=== PATIENT | female | born 1995 | race Caucasian/White ===

== ENCOUNTER 2016-11-29 19:31 | Emergency (ER) | payer OTHER ==
[2016-11-29 19:47] VITALS: BP 137/75; PULSE 64; TEMP 98; BMI 28.0
[2016-11-29 21:01] LABS: BASOPHIL 0.7 % (0-2.0); EOSINOPHIL 2.2 % (0-4.5); MCH 29.8 pg (25.7-33.7); MCHC 33.7 g/dl (32.0-36.0); MEAN CELL VOLUME 88.4 fl (80-96); MEAN PLT VOLUME 9.4 fl (7.5-11.1); NEUTROPHILS 53.3 % (42.8-82.8); PLATELET COUNT 236 K/MM3 (134-434); RDW 13.8 % (11.6-15.6); WHITE BLOOD COUNT 9.3 K/mm3 (4.0-10.0)
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
[2016-11-29 21:32] LABS: ALBUMIN 3.8 g/dl (3.4-5.0); ANION GAP 10 (8-16); BILIRUBIN,TOTAL 0.4 mg/dL (0.2-1.0); CALCIUM 9.2 mg/dL (8.5-10.1); CO2 26 mmol/L (21-32); COCKROFT - GAULT 143.8285; CREATININE 0.7 mg/dL (0.55-1.02); GLUCOSE,RANDOM 101 mg/dL (74-106); SGOT/AST 22 U/L (15-37); SGPT/ALT 25 U/L (12-78); TOT PROT 7.5 g/dl (6.4-8.2)
[2016-11-29 21:33] LABS: ALK PHOS 103 U/L (45-117)
[2016-11-29 21:51] LABS: HIV 1 & 2 AB NEGATIVE; HIV 1 AGp24 NEGATIVE
[2016-11-29] MEDS ORDERED: HIV POST EXPOSURE PROPHYLAXIS KIT NR ONE (22:06)
[2016-11-29] MEDS ORDERED: HIV POST EXPOSURE PROPHYLAXIS KIT PO ONE (22:15)
== END 2016-11-29 22:32 | disposition home or self-care (01) ==
LOC: JERFT 19:31
DX: T76.21XA Adult sexual abuse, suspected, initial encounter (principal)
CPT/HCPCS: 36415; 80053; 84703; 85025; 87389; 87491; 87591; 99282-25

== ENCOUNTER 2017-09-10 00:41 | Emergency (ER) | payer OTHER ==
[2017-09-10 01:06] VITALS: BP 118/76; PULSE 76; TEMP 98.2; BMI 27.1
--- NOTE | 2017-09-10 01:36 | PDOC ---
History of Present Illness - General Chief Complaint: Abscess Boil Stated Complaint: CYST Time Seen by Provider: 09/10/17 00:44 History Source: Patient Exam Limitations: No Limitations - History of Present Illness Initial Comments: 09/10/17 02:00 This is a 22-year-old female who comes in complaining of a abscess in her right axilla. Patient has a history of similar Jarvis in the past that required I incision and drainage. Patient said that this evening in the abscess became very painful and started to drain spontaneously so she comes in for evaluation. Patient denies any fevers or chills. Patient said she is otherwise healthy PAST MEDICAL HISTORY: As per history of present illness PAST SURGICAL HISTORY: no significant history FAMILY HISTORY: no pertinant history SOCIAL HISTORY: Pt lives with family and is employed. MEDICATIONS: reviewed ALLERGIES: As per nursing notes Review of Systems General: No fevers or chills, no weakness, no weight loss HEENT: No change in vision. No sore throat,. No ear pain CardioVascular: No chest pain or shortness of breath Respiratory:No cough, or wheezing. Gastrointestinal: no nausea, vomitting, diarrhea or constipation, No rectal bleeding Genitourinary: No dysuria, hematuria, or frequency Musculoskeletal: No joint or muscle pain or swelling,+ Neurologic: No headache, vertigo, dizziness or loss of consciousness Psychiatric: nor depression Skin: Sebaceous cyst abscesses of right axilla Endocrine: no increased thirst or abnormal weight change Allergic: no skin or latex allergy All other systems reviewed and normal GENERAL: The patient is awake, alert, and fully oriented, in no acute distress. HEAD: Normal with no signs of trauma. EYES: Pupils equal, round and reactive to light, extraocular movements intact, sclera anicteric, conjunctiva clear. EXTREMITIES: Right axilla there is a approximately 3 x 3 cm abscess with some purulent drainage. There is associated lymphadenopathy. NEUROLOGICAL: Normal speech, normal gait. grossly intact PSYCH: Normal mood, normal affect. SKIN: Warm, Dry, normal turgor, no rashes or lesions noted. Procedure note: Incision and drainage of an abscess Area anesthetized with 1% lidocaine no epinephrine Abscess incised with a #11 blade Moderate amount of. The material was removed, and loculation was broken up. Abscess cavity packed with iodoform. Patient tolerated the procedure well Assessment and plan: This was a 22-year-old female who comes in with a sebaceous cyst abscess that required incision and drainage and packing. I performed the incision and drainage and packing and patient was discharged home she was told to remove the packing in 24 hours and start hot soaks patient does have somewhat she can follow-up with. Past History - Past Medical History Allergies/Adverse Reactions: Allergies Allergy/AdvReac Type Severity Reaction Status Date / Time No Known Allergies Allergy Verified 11/29/16 19:39 Home Medications: Ambulatory Orders NK [No Known Home Medication] 11/29/16 COPD: No - Immunization History Immunization Up to Date: Yes - Suicide/Smoking/Psychosocial Hx Smoking History: Never smoked Have you smoked in the past 12 months: No Number of Cigarettes Smoked Daily: 0 Hx Alcohol Use: No Drug/Substance Use Hx: No Substance Use Type: None *Physical Exam - Vital Signs Last Vital Signs Temp Pulse Resp BP Pulse Ox 98.2 F 76 16 118/76 100 09/10/17 00:46 09/10/17 00:46 09/10/17 00:46 09/10/17 00:46 09/10/17 00:46 *DC/Admit/Observation/Transfer Diagnosis at time of Disposition: Abscess of axilla - Discharge Dispostion Disposition: HOME Condition at time of disposition: Stable Admit: No - Referrals Referrals: ON STAFF,NOT [Primary Care Provider] - - Patient Instructions Printed Discharge Instructions: DI for Incision and Drainage of a Skin Abscess Additional Instructions: Remove the packing tomorrow evening and start hot soaks as discussed by the doctor. Tylenol or Motrin as needed for pain. Return to the emergency department immediately with ANY new, persistent or worsening symptoms. Continue any medications as previously prescribed by your physician. You should follow up with your primary doctor as soon as possible regarding today's emergency department visit. . Please make sure your doctor reviews the results of your emergency evaluation. Thank you for coming to the Emergency Department today for your care. It was a pleasure to see you today. Please note that your evaluation is INCOMPLETE until you follow-up with your doctor. - Post Discharge Activity
== END 2017-09-10 01:44 | disposition home or self-care (01) ==
LOC: FER 00:41
PROC: 0H9CXZZ Drainage of Left Upper Arm Skin, External Approach (ICD-10-PCS; principal; 2017-09-10)
DX: L02.411 Cutaneous abscess of right axilla (principal)
CPT/HCPCS: 10060; 99281-25

== ENCOUNTER 2018-06-23 22:26 | Emergency (ER) | payer OTHER ==
--- NOTE | 2018-06-23 22:59 | PDOC ---
History of Present Illness - General History Source: Patient, Family, Old Records Exam Limitations: No Limitations - History of Present Illness Initial Comments: 06/23/18 23:51 The patient is a 22 year old female presenting with her family, with a significant past medical history of axillary cysts, who presents to the ED complaining of a left axillary cyst. She reports that she has a history of axilla cysts bilaterally with multiple I&Ds, occurring in 2014, 2016 and earlier in 2018. She states that she went to an urgent care first and got prescribed antibiotics. She opted to come to the ED due to the consistent pain and to see if we could drain the cyst. The patient denies chest pain, shortness of breath, headache and dizziness. Denies fever, chills, nausea, vomiting, diarrhea or constipation. Allergies: None Past surgical history: None reported Social History: No alcohol, tobacco or drug use reported \ <Nick Lee - Last Filed: 06/23/18 23:52> <Deirdre Soelr - Last Filed: 06/24/18 04:20> - General Chief Complaint: Abscess Boil Stated Complaint: CYST LT AXILLA Time Seen by Provider: 06/23/18 22:29 Past History <Nick Lee - Last Filed: 06/23/18 23:52> - Past Medical History COPD: No - Immunization History Immunization Up to Date: Yes - Suicide/Smoking/Psychosocial Hx Smoking History: Never smoked Have you smoked in the past 12 months: No Number of Cigarettes Smoked Daily: 0 Hx Alcohol Use: No Drug/Substance Use Hx: No Substance Use Type: None <Deirdre Soler - Last Filed: 06/24/18 04:20> - Past Medical History Allergies/Adverse Reactions: Allergies Allergy/AdvReac Type Severity Reaction Status Date / Time No Known Allergies Allergy Verified 11/29/16 19:39 Home Medications: Ambulatory Orders Cephalexin [Keflex] 500 mg PO TID 06/23/18 Review of Systems - Review of Systems Able to Perform ROS?: Yes Comments:: 06/23/18 23:48 GENERAL/CONSTITUTIONAL: No fever or chills. No weakness. HEAD, EYES, EARS, NOSE AND THROAT: No change in vision. No ear pain or discharge. No sore throat. GASTROINTESTINAL: No nausea, vomiting, diarrhea or constipation. GENITOURINARY: No dysuria, frequency, or change in urination. CARDIOVASCULAR: No chest pain or shortness of breath. RESPIRATORY: No cough, wheezing, or hemoptysis. MUSCULOSKELETAL: No joint or muscle swelling or pain. No neck or back pain. SKIN: (+) Left axilla mass. No rash NEUROLOGIC: No headache, vertigo, loss of consciousness, or change in strength/ sensation. ENDOCRINE: No increased thirst. No abnormal weight change. HEMATOLOGIC/LYMPHATIC: No anemia, easy bleeding, or history of blood clots. ALLERGIC/IMMUNOLOGIC: No hives or skin allergy. <Nick Lee - Last Filed: 06/23/18 23:52> *Physical Exam - Vital Signs Last Vital Signs Temp Pulse Resp BP Pulse Ox 98.4 F 74 16 121/67 100 06/23/18 22:30 06/23/18 22:30 06/23/18 22:30 06/23/18 22:30 06/23/18 22:30 - Physical Exam Comments: 06/23/18 23:48 Constitutional: Awake, alert, oriented. No acute distress. Head: Normocephalic. Atraumatic Neck: Supple. Full ROM. No lymphadenopathy. Cardiovascular: Regular rate. Regular rhythm. S1, S2 regular. Distal pulses are 2+ and symmetric. Pulmonary/Chest: No evidence of respiratory distress. Clear to auscultation bilaterally No wheezing, rales or rhonchi. Abdominal: Soft and non-distended. There is no tenderness. No rebound, guarding or rigidity. No organomegaly. No palpable masses. Good bowel sounds. Back: No CVA tenderness. Musculoskeletal: No edema. No cyanosis. No clubbing. Full range of motion in all extremities. Nocalf tenderness. Radial/pedal pulses are intact and 2+ bilaterally Skin: (+) 4 cm y 2 cm fluctuate, markedly tender, erythematoua, moderate edematous mass on left axilla. Healed horizontal linear incision at the middle of the mass with surrounding area of erythema. No streaking or abnormality noted. Neurological: Alert and oriented to person, place, and time. Cranial nerves II -XII are grossly intact. Normal speech. Strength is grossly symmetric. No sensory deficits. Psychiatric: Good eye contact. Normal interaction, affect and behavior. <Nick Lee - Last Filed: 06/23/18 23:52> Procedures - Incision and Drainage I&D Site: Left: Axilla Betadine cleansed: No (chlorhexidine/ethanol) Anesthesia: 1% Lidocaine Volume(ml): 2 Blade Size: 11 Attempts: 2 Iodinated Packin/4 in Complications: none Dressing: Yes (dry sterile) Progress: Left axilla abscess prepped using chlorhexidine/ethanol and sterilely draped.. 2 mL of 1% lidocaine used for local anesthesia. 1.5 cm incision made with #11 blade. Serosanguineous material mixed with purulent and fatty sebaceous material expressed. Sample sent for culture and sensitivity. Wound irrigated with 40 mL of sterile normal saline and packed with quarter-inch iodinated packing material. Dry sterile dressing applied to the wound. Patient tolerated procedure well <Deirdre Soler - Last Filed: 06/24/18 04:20> Progress Note - Progress Note Progress Note: Documentation has been prepared under my direction and personally reviewed by me in its entirety. I attest that this documented accurately reflects all work, treatment, procedures and medical decision making performed by me. <Deirdre Soler - Last Filed: 06/24/18 04:20> Medical Decision Making - Medical Decision Making As noted above, this patient presented with infected sebaceous cyst in the left axilla. This is a recurrent infection of sebaceous cyst with previous incision being in the midline of the new edematous/inflamed area. Patient previously started on antibiotics by urgent care. Exam and procedure as noted. Patient will follow-up with general surgeon (Dr. Saldivar) in approximately 10 days. This visit will be for evaluation for elective removal of the sebaceous cyst wall. Meanwhile, the patient will continue antibiotics for a few days; if she has any recurrent pain/discharge/erythema, she should return to the ER <Deirdre Soler - Last Filed: 06/24/18 04:20> *DC/Admit/Observation/Transfer - Attestations Scribe Attestion: 06/23/18 23:48 Documentation prepared by Nick Lee, acting as medical pathology teacher for Deirdre Soler MD <Nick Lee - Last Filed: 06/23/18 23:52> <Deirdre Soler - Last Filed: 06/24/18 04:20> Diagnosis at time of Disposition: Sebaceous cyst of left axilla - Discharge Dispostion Disposition: HOME Condition at time of disposition: Stable - Referrals Referrals: Michelle Lofton [Primary Care Provider] - Trever Saldivar MD [Staff Physician] - 07/05/18 2:20 pm - Patient Instructions Printed Discharge Instructions: Epidermal Cyst Additional Instructions: continue antibiotics for 2 more days Motrin/Aleve/Tylenol as needed for pain return to ER if pain/swelling worsens followup with Dr Saldivar on Jul 05 at 2:20PM - Post Discharge Activity Forms/Work/School Notes: Back to Work
[2018-06-23 23:08] VITALS: BP 121/67; PULSE 74; TEMP 98.4; BMI 28.3
== END 2018-06-24 01:15 | disposition home or self-care (01) ==
LOC: FER 22:26
PROC: 0H9CXZZ Drainage of Left Upper Arm Skin, External Approach (ICD-10-PCS; principal; 2018-06-23)
DX: L02.412 Cutaneous abscess of left axilla (principal)
CPT/HCPCS: 87070; 87205; 99281-25